=== PATIENT | male | born 1950 | race Caucasian/White ===

== ENCOUNTER 2017-04-16 11:46 | Emergency (ER) | payer MEDICARE ==
[2017-04-16 12:16] VITALS: BP 132/71
--- NOTE | 2017-04-16 13:02 | RAD ---
INDICATION: Left third digit pain and immobility COMPARISON: None TECHNIQUE: AP, lateral, and oblique views were obtained. FINDINGS: The bony structures, joint spaces, and soft tissues are normal for age. IMPRESSION: NEGATIVE EXAMINATION.
--- NOTE | 2017-04-16 13:54 | UC ---
Hand/Wrist HPI - HPI Summary HPI Summary: WAS USING FINGER SHOEHORN THIS MORNING, FELT A POP, UNABLE TO FLEX LEFT MIDDLE FINGER. HAD COURSE OF LEVOQUIN SEVERAL WEEKS AGO. FEELS PAIN IN PALM OF HAND WHEN ATTEMPTING TO FLEX FINGER. - History Of Current Complaint Chief Complaint: UCUpperExtremity Stated Complaint: FINGER INJURY Time Seen by Provider: 04/16/17 12:25 Hx Obtained From: Patient, Family/General Operator Onset/Duration: Sudden Onset, Lasting Hours, Still Present Severity Initially: Moderate Severity Currently: Mild Pain Intensity: 0 Pain Scale Used: 0-10 Numeric Character Of Pain: Dull, Aching Aggravating Factor(s): Flexion - UNABLE TO FLEX LEFT THIRD FINGER Alleviating: Nothing Associated Signs And Symptoms: Negative: Swelling, Redness, Fever, Numbness/ Tingling Related History: Dominant Hand Right - Allergies/Home Medications Allergies/Adverse Reactions: Allergies Allergy/AdvReac Type Severity Reaction Status Date / Time No Known Allergies Allergy Verified 04/16/17 12:16 Home Medications: Home Medications Aspirin [Aspirin 81 MG TAB] 81 mg PO DAILY 04/16/17 [History Confirmed 04/16/17] Diphenoxylat/Atrop 2.5-0.025M* [Lomotil TAB*] 1 tab PO DAILY 04/16/17 [History Confirmed 04/16/17] PMH/Surg Hx/FS Hx/Imm Hx Previously Healthy: Yes Endocrine History Of: Reports: Thyroid Disease - hypo Denies: Diabetes Cardiovascular History Of: Reports: Hypertension Respiratory History Of: Reports: Pneumonia GI/ History Of: Denies: Ulcer, Gastrointestinal Bleed, Gall Bladder Disease, Renal Disease Neurological History Of: Reports: Migraine - wears special watch Other History Of: Negative For: Anticoagulant Therapy - Surgical History Surgical History: Yes Surgery Procedure, Year, and Place: COLON RESECTION/COLON CANCER 2010: [facility] - Family History Known Family History: Positive: Hypertension - Social History Lives: With Family Alcohol Use: None Substance Use Type: None Smoking Status (MU): Never Smoked Tobacco - Immunization History Most Recent Influenza Vaccination: do no recieve Most Recent Tetanus Shot: within last five years Most Recent Pneumonia Vaccination: do not recieve Review of Systems Constitutional: Negative Skin: Negative Eyes: Negative ENT: Negative Respiratory: Negative Cardiovascular: Negative Gastrointestinal: Negative Genitourinary: Negative Musculoskeletal: Arthralgia - UNABLE TO FLEX LEFT THIRD FINGER, Myalgia - LEFT THIRD FINGER Neurological: Negative Psychological: Negative All Other Systems Reviewed And Are Negative: Yes Physical Exam Triage Information Reviewed: Yes Appearance: Well-Appearing, No Pain Distress, Well-Nourished Vital Signs: Initial Vital Signs Temp 97.4 F 04/16/17 12:07 Pulse 66 04/16/17 12:07 Resp 16 04/16/17 12:07 BP 132/71 04/16/17 12:07 Pulse Ox 97 04/16/17 12:07 Vital Signs Reviewed: Yes Eye Exam: Normal Eyes: Positive: Conjunctiva Clear ENT Exam: Normal ENT: Positive: Normal ENT inspection, Hearing grossly normal, TMs normal Dental Exam: Normal Neck exam: Normal Neck: Positive: Supple, Nontender, No Lymphadenopathy Respiratory Exam: Normal Respiratory: Positive: Chest non-tender, Lungs clear, Normal breath sounds, No respiratory distress, No accessory muscle use Cardiovascular Exam: Normal Cardiovascular: Positive: RRR, No Murmur, Pulses Normal Abdominal Exam: Normal Abdomen Description: Positive: Nontender, No Organomegaly Musculoskeletal: Positive: Strength Limited @ - UNABLE TO FLEX LEFT THIRD FINGER , ROM Limited @ - UNABLE TO FLEX LEFT THIRD FINGER Neurological Exam: Normal Psychological Exam: Normal Psychological: Positive: Normal Response To Family Skin Exam: Normal Hand/Wrist Course/Dx - Differential Dx/Diagnosis Differential Diagnosis/HQI/PQRI: Dislocation, Fracture, Sprain, Strain, Tendonitis, Tenosynovitis Provider Diagnoses: POSSIBLE FLEXOR TENDON INJURY TO LEFT THIRD FINGER - Physician Notifications Instructed by Provider To: Have Pt Call For Appt. Discharge - Discharge Plan Condition: Stable Disposition: HOME Patient Education Materials: Finger Sprain (ED), Tendinitis (ED), Tendon Rupture (ED) Referrals: Octavio Callaway MD [Primary Care Provider] - Inez Simmons MD [Medical Doctor] -
== END 2017-04-16 13:36 | disposition home or self-care (01) ==
LOC: UCEAST 11:46
DX: S69.92XA Unspecified injury of left wrist, hand and finger(s), initial encounter (principal); X58.XXXA Exposure to other specified factors, initial encounter; Y93.89 Activity, other specified; Y92.9 Unspecified place or not applicable; E03.9 Hypothyroidism, unspecified; I10 Essential (primary) hypertension; G43.909 Migraine, unspecified, not intractable, without status migrainosus
CPT/HCPCS: 73140; 99212; G0463

== ENCOUNTER 2017-04-18 12:02 | Observation (INO) | payer MEDICARE ==
[2017-04-18 13:50] LABS: Hematocrit 42 % (42-52); Mean Corpuscular HGB Conc 33 g/dl (31-36); Mean Corpuscular Hemoglobin 29 pg (27-31); Mean Corpuscular Volume 88 fL (80-94); Red Blood Count 4.81 10^6/ul (4.0-5.4); Red Cell Distribution Width 14 % (10.5-15); White Blood Count 15.8 10^3/ul (3.5-10.8)
[2017-04-18 13:51] LABS: Add Diff/Slide Review? Slide Review Added; Comments Flag Yes
[2017-04-18 14:00] LABS: Albumin 3.8 g/dL (3.2-5.2); BUN/Creatinine Ratio 16.7 (8-20); C Reactive Protein 39.87 mg/L (< 5.00); Calcium 8.9 mg/dL (8.6-10.3); EGFR African American 66.5 (>60); EGFR Non-African American 51.7 (>60); Globulin 3.6 g/dL (2-4); Potassium 3.8 mmol/L (3.5-5.0); Total Protein 7.4 g/dL (6.4-8.9)
[2017-04-18 14:51] LABS: Immature Granulocytes 27 % (0-9); Metamyelocytes % 1 % (0-2); Neutrophil % 61 % (38-83); RBC Morphology Normal (Normal)
[2017-04-18] MEDS: NS 0.9% 1000 ML* 2,000 ML IV ONE (15:16)
[2017-04-18] MEDS ORDERED: NS 0.9% 1000 ML* 1,000 ML IV ONE (15:29)
[2017-04-18] MEDS ORDERED: metroNIDAZOLE TAB* 250 MG PO ONE (15:29)
[2017-04-18] MEDS ORDERED: Vancomycin CAP* 125 MG CAP PO ONE (15:33)
[2017-04-18] MEDS: NS 0.9% 1000 ML* 1,000 ML IV SCH (19:30)
[2017-04-18] MEDS: Vancomycin CAP* 125 MG CAP PO SCH (21:23)
--- NOTE | 2017-04-18 21:57 | ED ---
Bárbara Cabezas Auryana, scribed for Yan Castorena MD on 04/18/17 at 1341 . GI/ HPI - HPI Summary HPI Summary: 66 year old male presents with watery diarrhea starting 1 week ago - 6-8x a day. He also has fevers (101.2 this morning), chills, and "racing pulse" per at doctors this morning. He denies abdominal pain, nausea, vomiting, blood in stool, or any foul smelling BM. No improvement with B.R.A.T. diet. Patient states that he has a normal appetite. He denies any recent travel. He is not on any blood thinners. Patient was recently on a 7 day course of ABX- Levaquin and Ciprofloxacin for infection - right toe. He was seen at Dr. Callaway office this morning and was advised to go to the ED - concern of C. Diff. PMHx is significant for colon CA with resection and ileostomy (2012 per patient), hypothyroidism, and bilateral LE neuropathy s/p chemotherapy - no history of DM. He denies any tobacco or alcohol use. - History of Current Complaint Chief Complaint: EDAbdPain Time Seen by Provider: 04/18/17 13:14 Stated Complaint: DIRRHEA/FEVER Hx Obtained From: Patient, Family/Doll Wig Maker Rooted Hair - Onset/Duration: Started Weeks Ago - 1, Still Present Timing: Constant Severity: Mild Current Severity: Mild Pain Intensity: 0 - no abdominal pain Associated Signs and Symptoms: Positive: Diarrhea - 6-8x day, Fever - this morning - none on arrival, Chills, Other: - "racing pulse" at appointment this morning. Negative: Nausea, Vomiting, Blood w/Stool, Abdominal Pain Alleviating Factor(s): Nothing - Allergy/Home Medications Allergies/Adverse Reactions: Allergies Allergy/AdvReac Type Severity Reaction Status Date / Time No Known Allergies Allergy Verified 04/16/17 12:16 Home Medications: Home Medications Aspirin EC Low Dose* [Ecotrin EC Low Dose 81 MG*] 81 mg PO DAILY 04/18/17 [ History Confirmed 04/18/17] Levothyroxine TAB* [Synthroid TAB*] 50 mcg PO DAILY 04/18/17 [History Confirmed 04/18/17] Losartan Potassium & Hydrochlo [Hyzaar 100/12.5 mg] 1 tab PO DAILY 04/18/17 [ History Confirmed 04/18/17] PMH/Surg Hx/FS Hx/Imm Hx Endocrine/Hematology History: Reports: Hx Blood Transfusions, Hx Thyroid Disease - hypo Denies: Hx Anticoagulant Therapy, Hx Blood Disorders, Hx Bone Marrow Disease , Hx Diabetes, Hx Systemic Lupus Erythematosus, Hx Sickle Cell Disease, Hx Anemia, Hx Unexplained Bleeding Cardiovascular History: Reports: Hx Hypertension Respiratory History: Reports: Hx Pneumonia Denies: Hx Sleep Apnea, Other Respiratory Problems/Disorders GI History: Reports: Hx Obstructive Bowel - due to cancer, Hx Ileostomy Denies: Hx Cirrhosis, Hx Crohn's Disease, Hx Diverticulosis, Hx Gall Bladder Disease, Hx Gastroesophageal Reflux Disease, Hx Gastrointestinal Bleed, Hx Hiatal Hernia, Hx Irritable Bowel, Hx Jaundice, Hx Pyloric Stenosis, Hx Ulcer, Other GI Disorders History: Denies: Hx Renal Disease Musculoskeletal History: Reports: Other Musculoskeletal History - pulled muscles in past Neurological History: Reports: Hx Migraine - wears special watch - Cancer History Cancer Type, Location and Year: Colon CA Hx Chemotherapy: Yes Hx Radiation Therapy: Yes Hx Palliative Cancer Treatment: No - Surgical History Surgery Procedure, Year, and Place: COLON RESECTION/COLON CANCER 2010: [facility] Hx Anesthesia Reactions: No Infectious Disease History: No Infectious Disease History: Denies: Hx Hepatitis, Hx Shingles, Hx Tuberculosis, Traveled Outside the [place] in Last 30 Days - Family History Known Family History: Positive: Hypertension, Other - low blood pressure, CA- unknown type - Social History Occupation: Retired Lives: With Family Alcohol Use: None Hx Substance Use: No Substance Use Type: Reports: None Smoking Status (MU): Never Smoked Tobacco Review of Systems Positive: Fever - per patient fever this morning 101.2 - none on arrival, Chills Eyes: Negative ENT: Negative Positive: Palpitations - "racing pulse" at appointment this morning Respiratory: Negative Positive: Vomiting. Negative: Abdominal Pain, Diarrhea, Nausea Genitourinary: Negative Musculoskeletal: Negative Skin: Negative Neurological: Negative Psychological: Normal All Other Systems Reviewed And Are Negative: Yes Physical Exam - Summary Physical Exam Summary: The patient is well-nourished in no acute distress and in no acute pain. The skin is warm and dry and skin color reflects adequate perfusion. Good skin turgor. HEENT: The head is normocephalic and atraumatic. The pupils are equal and reactive. The conjunctivae are clear and without drainage. Nares are patent and without drainage. Mouth reveals mildly dry mucous membranes and the throat is without erythema and exudate. The external ears are intact. Neck is supple with full range of motion and non-tender. There are no carotid bruits. There is no neck vein distension. Respiratory: Chest is non-tender. Lungs are clear to auscultation and breath sounds are symmetrical and equal. Cardiovascular: Heart is tachycardic. There is no murmur or rub auscultated. There is slight ankle edema and pulses are symmetrical and equal. Abdomen: The abdomen is soft and non-tender- obese. There are normal bowel sounds heard in all four quadrants and there is no organomegaly palpated. Musculoskeletal: There is no back pain noted. Extremities are non-tender with full range of motion. There is good capillary refill. There is no peripheral edema or calf tenderness elicited. Neurological: Patient is alert and oriented to person, place and time. The patient has symmetrical motor strength in all four extremities. Cranial nerves are grossly intact. Deep tendon reflexes are symmetrical and equal in all four extremities. Psychiatric: The patient has an appropriate affect and does not exhibit any anxiety or depression. Triage Information Reviewed: Yes Vital Signs On Initial Exam: Initial Vitals Temp Pulse Resp BP Pulse Ox 98.2 F 100 20 119/49 100 04/18/17 12:12 04/18/17 12:12 04/18/17 12:12 04/18/17 12:12 04/18/17 12:12 Vital Signs Reviewed: Yes - [place] Coma Scale Coma Scale Total: 15 Diagnostics - Vital Signs Vital Signs Temp Pulse Resp BP Pulse Ox 04/18/17 12:14 98.4 F 98 20 119/49 95 04/18/17 12:12 98.2 F 100 20 119/49 100 - Laboratory Lab Results: Lab Results 04/18/17 04/18/17 04/18/17 Range/Units 12:38 12:38 12:38 WBC 15.8 H (3.5-10.8) 10^3/ul RBC 4.81 (4.0-5.4) 10^6/ul Hgb 14.0 (14.0-18.0) g/dl Hct 42 (42-52) % MCV 88 (80-94) fL MCH 29 (27-31) pg MCHC 33 (31-36) g/dl RDW 14 (10.5-15) % Plt Count Not Reportable MPV Not Reportable Immature Gran % (Auto) 27 H (0-9) % Neut % (Auto) 88.4 H (38-83) % Lymph % (Auto) 4.7 L (25-47) % [place] % (Auto) 6.7 (1-9) % Eos % (Auto) 0 (0-6) % Baso % (Auto) 0.2 (0-2) % Absolute Neuts (auto) 14.0 H (1.5-7.7) 10^3/ul Absolute Lymphs (auto) 0.8 L (1.0-4.8) 10^3/ul Absolute Monos (auto) 1.1 H (0-0.8) 10^3/ul Absolute Eos (auto) 0 (0-0.6) 10^3/ul Absolute Basos (auto) 0 (0-0.2) 10^3/ul Absolute Nucleated RBC 0.01 10^3/ul Neutrophils % 61 (38-83) % Band Neutrophils % 26 H (0-8) % Lymphocytes % 4 L (25-47) % Monocytes % 8 (0-13) % Metamyelocytes % 1 (0-2) % Nucleated RBC % 0.1 Normal RBC Morphology Normal (Normal) Sodium 131 L (133-145) mmol/L Potassium 3.8 (3.5-5.0) mmol/L Chloride 100 L (101-111) mmol/L Carbon Dioxide 23 (22-32) mmol/L Anion Gap 8 (2-11) mmol/L BUN 23 (6-24) mg/dL Creatinine 1.38 H (0.67-1.17) mg/dL Est GFR ( Amer) 66.5 (>60) Est GFR (Non-Af Amer) 51.7 (>60) BUN/Creatinine Ratio 16.7 (8-20) Glucose 134 H (70-100) mg/dL Lactic Acid 1.1 (0.5-2.0) mmol/L Calcium 8.9 (8.6-10.3) mg/dL Total Bilirubin 1.00 (0.2-1.0) mg/dL AST 17 (13-39) U/L ALT 15 (7-52) U/L Alkaline Phosphatase 55 (34-104) U/L C-Reactive Protein 39.87 H (< 5.00) mg/L Total Protein 7.4 (6.4-8.9) g/dL Albumin 3.8 (3.2-5.2) g/dL Globulin 3.6 (2-4) g/dL Albumin/Globulin Ratio 1.1 (1-3) Lipase 25 (11.0-82.0) U/L Result Diagrams: 04/18/17 12:38 04/18/17 12:38 Lab Statement: Any lab studies that have been ordered have been reviewed, and results considered in the medical decision making process. Re-Evaluation - Re-Evaluation First Eval Re-Evaluation Time: 15:24 - dicussed labs, stool sample, and plan to consult hospitalist on admission or discharge Change: Unchanged Second Eval Re-Evaluation Time: 15:31 - discussed recommendation of hospitalist Comment: agrees to admission GIGU Course/Dx - Course Assessment/Plan: 66 year old male presents with watery diarrhea starting 7 days ago. Patient was recently on ABX for 1 week (ciprofloxacin and Levaquin) for recent right toe infection. He denies any nausea, vomiting, abominal pain, and any blood or foul smelling BMs. PMHx is significant for colon CA with resection and ileostomy (2012). He was seen at Dr. Callaway office this morning and was advised to go to the ED for concerns or C. Diff due to fever (101.2). LABS drawn:WBC (15.8), CRP (39.87), glucose (134). STOOL SAMPLE: C. DIFF - positive BLOOD-negative. Hospitalist consulted for admission- recommends vancomycin ABX and agrees to admission. Diagnosis: C. Difficile, bandemia, dehydration, and renal insufficiency - Diagnoses Differential Diagnoses - Male: Diverticulitis, Colitis, Dehydration, Sepsis, Other Provider Diagnoses: Bandemia, C. difficile diarrhea, Dehydration, Renal insufficiency - Physician Notifications Discussed Care Of Patient With: Dr. Blount Time Discussed With Above Provider: 15:27 - recommends admission Discharge - Discharge Plan Condition: Stable Disposition: ADMITTED TO [facility] documentation as recorded by the Bárbara mast Auryana accurately reflects the service I personally performed and the decisions made by me, Yan Castorena MD.
--- NOTE | 2017-04-18 22:22 | HP ---
CC: Dr. Callaway HISTORY AND PHYSICAL: DATE OF ADMISSION: 04/18/17 PRIMARY CARE PHYSICIAN: Dr. Callaway. CHIEF COMPLAINT: Diarrhea. HISTORY OF PRESENT ILLNESS: Mr. Sanchez is a 66-year-old male with past medical history of hyperten rayshawn; hypothyroidism; history of rectal cancer, status post low anterior resection, ileostomy, and r eversal with subsequent chronic diarrhea who presents to the hospital with significant increase in l oose stools. The patient states he was recently treated for a toe infection by Dr. Callaway's office. He was initially on clindamycin, developed diarrhea; then was switched to Flagyl and Levaquin for a n additional 10 days. His states the toe has been improving, although still red and Is not painful due to his peripheral neuropathy. The patient states he finished the antibiotics 1 week ago. He nichols d diarrhea that began 2 to 3 days into the course. After completing the antibiotics, the diarrhea p ersisted for 2 additional days and then resolved; however, it recurred again 3 days ago. He states he has been going 6 to 7 times daily. It has been watery at times. Denies abdominal pain. Reports some chills last night. Has had no nausea or vomiting. He reports relatively good p.o. intake, al though he admits he has not been drinking enough fluids. Denies any blood in the stool. No hematur ia, dysuria, chest pain, or shortness of breath. PAST MEDICAL HISTORY: 1. Hypertension. 2. Hypothyroidism. 3. Rectal cancer. 4. Chronic diarrhea. 5. Neuropathy. PAST SURGICAL HISTORY: Low anterior resection, ileostomy, and reversal in 2011. HOME MEDICATIONS: 1. Aspirin 81 mg by mouth daily. 2. Synthroid 50 mcg by mouth daily. 3. Lomotil 1 tablet by mouth daily. ALLERGIES: The patient reports no known drug allergies. FAMILY HISTORY: Significant for maternal uncle with throat cancer and maternal grandmother with bong betmalgorzata. SOCIAL HISTORY: Denies any history of tobacco abuse. Occasional alcohol use. Denies any illicit dr ug use. REVIEW OF SYSTEMS: A 12-point review of systems negative except for that as noted in the HPI. PHYSICAL EXAMINATION GENERAL: The patient is a pleasant middle-aged male lying in bed in no apparent distress. VITAL SIGNS: On admission, temperature 98.2, heart rate of 100, respiratory rate of 20, O2 saturati on 100% on room air, blood pressure 119/49. HEENT: Dry mucous membranes. Anicteric sclerae. No cervical adenopathy. LUNGS: Clear to auscultation bilaterally. No wheezes, rales, or rhonchi. CARDIOVASCULAR: Regular rate and rhythm. S1, S2. No murmurs, gallops, or rubs. ABDOMEN: Soft, nontender, nondistended. Bowel sounds positive. EXTREMITIES: No cyanosis, clubbing, or edema. Right great toe with erythema, some peeling skin. N o purulence noted. Erosion of the toenail. SKIN: Warm, dry, and well perfused. LABS AND DIAGNOSTICS: White blood cell count of 15.8, hematocrit of 42, platelets not reportable, 26% bandemia. Sodium of 131, potassium 3.8, chloride of 100, BUN of 23, creatinine 1.38, glucose of 134, lactic acid of 1.1. CRP of 39. Stool fecal lactoferrin positive. C. difficile positive. Oc cult blood negative. ASSESSMENT AND PLAN: Clostridium difficile infection in a 66-year-old male with a past medical hist ory of hypertension, hypothyroidism, and rectal cancer. 1. Clostridium difficile colitis: Could qualify as severe with the patient's leukocytosis and kristi l failure. He has a significant bandemia which is why I will just keep him in the hospital overnigh t. I am going to treat him with oral vancomycin. He received IV fluid boluses in the emergency dep artment. We will continue maintenance fluids at 100 cc per hour. Monitor the patient's stool outpu t. 2. Acute kidney injury: The patient's creatinine is 1.38. Baseline is around 0.7 to 0.9. Receive d IV fluids in the emergency department. For now, we will hold the patient's home losartan/hydrochl orothiazide. Recheck BMP in the morning. 3. Hypertension: Holding antihypertensives as above. 4. Hypothyroidism: Continue home Synthroid. 5. DVT prophylaxis: SCDs. 6. Code status: The patient is full code. TIME SPENT: Total time spent on this admission, 40 minutes with over half the time spent face-to-fa ce with the patient in counseling and coordinating care. [id number]/[facility] #: [id number]
[2017-04-19] MEDS: NS 0.9% 1000 ML* 1,000 ML IV SCH (05:38)
[2017-04-19] MEDS ORDERED: Levothyroxine TAB* 50 MCG TAB PO SCH (06:00)
[2017-04-19 07:24] LABS: Hematocrit 36 % (42-52); Mean Corpuscular HGB Conc 33 g/dl (31-36); Mean Corpuscular Hemoglobin 30 pg (27-31); Mean Corpuscular Volume 90 fL (80-94); Mean Platelet Volume 9 um3 (7.4-10.4); Red Blood Count 4.04 10^6/ul (4.0-5.4); Red Cell Distribution Width 14 % (10.5-15); White Blood Count 10.9 10^3/ul (3.5-10.8)
[2017-04-19 07:38] LABS: BUN/Creatinine Ratio 18.6 (8-20); EGFR African American 83.8 (>60); EGFR Non-African American 65.1 (>60); Potassium 3.6 mmol/L (3.5-5.0)
[2017-04-19] MEDS ORDERED: Aspirin EC Low Dose* 81 MG TAB.EC PO SCH (09:00)
[2017-04-19] MEDS: Vancomycin CAP* 125 MG CAP PO SCH (09:11)
[2017-04-19 09:13] VITALS: BP 121/51
[2017-04-19 09:21] LABS: Urine Bacteria Absent (Absent); Urine Bilirubin Negative (Negative); Urine Glucose Negative (Negative); Urine Nitrite Negative (Negative)
--- NOTE | 2017-04-19 10:07 | DCNOTE ---
Patient seen this morning. Had watery BM yesterday evening, soft, solid stool at night and nothing since. No abdominal pain. On exam, RRR, s1 and s2 present, no m/g/r, abd soft, NTND, BS+, R toe with improvement in erythema Leukocytosis, bandemia and BENNY all improved. Will discharge home on oral Vancomycin to complete outpatient course.
--- NOTE | 2017-04-20 01:48 | DS ---
CC: Dr. Callaway DISCHARGE SUMMARY: DATE OF ADMISSION: 04/18/17 DATE OF DISCHARGE: 04/19/17 PRIMARY CARE PHYSICIAN: Dr. Callaway. PRINCIPAL DISCHARGE DIAGNOSES: 1. Clostridium difficile colitis. 2. Acute kidney injury. 3. Bandemia. SECONDARY DIAGNOSES: 1. Hypertension. 2. Hypothyroidism. 3. History of rectal cancer. 4. Chronic diarrhea. 5. Neuropathy. DISCHARGE MEDICATION REGIMEN: 1. Vancomycin 125 mg by mouth 4 times daily. 2. Lomotil 1 tablet by mouth daily. 3. Synthroid 50 mcg by mouth daily. 4. Losartan/HCTZ 100/12.5 one tablet by mouth daily. 5. Aspirin 81 mg by mouth daily. HISTORY OF PRESENT ILLNESS AND HOSPITAL SUMMARY: Please see my full history and physical for full d etails. Briefly, Mr. Sanchez is a 66-year-old man with a past medical history as above who presente d to the hospital with increasing bouts of diarrhea after a recent antibiotic course for a toe infec tion. The patient was initially started on clindamycin and then switched to Flagyl and Levaquin. Di arrhea persisted after discontinuing the antibiotics. He came to the hospital with an elevated whit e blood cell count of 15, as well as a 26% bandemia and BENNY. Due to these constellation of findings, I treated the patient for severe C. diff with vancomycin oral. He had a rapid response with normal ization of his leukocytosis the following day and resolution of his BENNY. He will be discharged home to complete a 2-week course of oral vancomycin and follow up with his PCP as an outpatient. TIME SP ENT: Total time spent on this discharge, 40 minutes. This is just a summary of the hospitalization. Please see the full medical record for further detai ls. [id number]/[facility] #: [id number]
== END 2017-04-19 11:25 | disposition home or self-care (01) ==
LOC: ED 12:02 → MED 16:13
PROVIDERS: ADMIT Hospitalist; ATTEND Hospitalist
DX: A04.7 Enterocolitis due to Clostridium difficile (principal); N17.9 Acute kidney failure, unspecified; D72.825 Bandemia; I10 Essential (primary) hypertension; E03.9 Hypothyroidism, unspecified; R19.7 Diarrhea, unspecified; G62.9 Polyneuropathy, unspecified; Z85.048 Personal history of other malignant neoplasm of rectum, rectosigmoid junction, and anus
CPT/HCPCS: 36415; 80048; 80053; 81003; 81015; 82272; 83605; 83630; 83690; 85025; 86140; 87040; 87045; 87046; 87493; 87899; 96360; 99284; A9270-GY; G0378

== ENCOUNTER 2017-04-24 14:17 | Day surgery (SDC) | payer MEDICARE ==
[~2017-04-24 14:17] MED LIST: Dexamethasone IV* 4 MG/ML 1 ML (4 MG) IV SLOW PU ONE; Famotidine IV* 10 MG/ML 2 ML (20 mg) IV ONE
[2017-04-24] MEDS ORDERED: Dexamethasone IV* 4 MG/ML 1 ML (4 MG) ONE (14:31)
[2017-04-24] MEDS ORDERED: Famotidine IV* 10 MG/ML 2 ML (20 mg) ONE (14:31)
[2017-04-24] MEDS ORDERED: ceFAZolin 2 GM PREMIX(*) 2 GM/50 ML BAG IVPB ONE (14:32)
[2017-04-24] MEDS ORDERED: Buffered Lidocaine 1% SYRIN* 5 ML/SYR SYRINGE ONE (14:32)
[2017-04-24] MEDS ORDERED: Bupivacaine 0.25% SDV* 30 ML ONE (14:33)
[2017-04-24] MEDS ORDERED: Lidocaine 1% INJ* 10 MG/ML 30 ML SDV ONE (14:34)
[2017-04-24] MEDS ORDERED: fentaNYL* 50 MCG/ML 2 ML VIAL (100 MCG VIAL) ONE (16:10)
[2017-04-24] MEDS ORDERED: Midazolam* 1 MG/ML 2 ML VIAL (2 MG) ONE (16:10)
[2017-04-24] MEDS ORDERED: Ketorolac INJ* 30 MG/ML 1 ML VIAL ONE (16:11)
[2017-04-24] MEDS ORDERED: Propofol* 10 MG/ML 20 ML BTL IV PUSH ONE (16:11)
[2017-04-24] MEDS ORDERED: Ondansetron INJ* 2 MG/ML VIAL ONE (16:11)
[2017-04-24] MEDS ORDERED: DiMENhydriNATE IV* 50 MG/ML VIAL IV PUSH PRN (16:15)
[2017-04-24] MEDS ORDERED: fentaNYL* 50 MCG/ML 2 ML VIAL (100 MCG VIAL) IV PRN (16:15)
[2017-04-24] MEDS ORDERED: ceFAZolin VIAL(*) 1 GM VIAL ONE (16:19)
[2017-04-24 20:23] VITALS: BP 125/67
--- NOTE | 2017-04-26 18:48 | OP ---
OPERATIVE REPORT: DATE OF OPERATION: 04/24/17 - CHRISTI DATE OF : 52 SURGEON: Charly Dietrich MD [employer] CONSULTANT: KELBY Canada ANESTHESIOLOGIST: Dr. Crow. ANESTHESIA: General. PRE-OP DIAGNOSIS: Left middle finger ruptures of FDP and FDS tendons after a course of Levaquin. POST-OP DIAGNOSIS: Left middle finger ruptures of FDP and FDS tendons after a course of Levaquin. OPERATIVE PROCEDURE: 1. Excision of extensive flexor tendon tenosynovitis at the level of the wrist and palm. 2. Repair of FDP laceration with autogenous palmaris longus tendon graft. 3. Debridement of flexor digitorum superficialis tendon rupture. INDICATIONS: Jose is a 66-year-old gentleman who had a great toe infection that was treated with Levaquin and Flagyl. On the 10th day of a 10-day course of Levaquin, he felt a pop and lost the ability to flex his middle finger at either the DIP or FDP joints. He was tender along the entirety of the flexor tendon sheath including down into the finger and into the palm. Unfortunately, that first day when he was in my office, he was febrile and diaphoretic and he went over to the ER where he was diagnosed with C diff colitis. He underwent a course of oral vancomycin and was admitted for rehydration for one night. I saw him back 3 or 4 days after that in the office. He had not had a fever since that day when he was in my office. His diarrhea had stopped. He was feeling much much better. I sent him over to his primary care physician, Dr. Callaway, who evaluated him. Dr. Callaway and I had a discussion and given the patient's clinical picture was improving and we ultimately decided that he was medically optimized now to proceed with exploration of the left middle finger flexor tendon and repair as needed. I talked to Jose about the risks of the surgery. He is at high risk given his recent C. diff infection of having a postoperative complication. He elected to proceed. ESTIMATED BLOOD LOSS: 5 mL. COMPLICATIONS: None. FINDINGS: Extensive flexor tendon tenosynovitis from the level of the distal forearm down to the carpal tunnel and into the palm. He had a rupture of both the FDS and FDP tendons at the level of the palm just distal to the superficial palmar arch. The FDP had ruptured just distal and at the origination of the lumbrical muscle and was being held from retracting too far by the lumbrical muscle. The ruptured tendon stumps were quite diseased and degenerative. There was also some fraying and early degeneration of the FDP tendons to the ring and index fingers. DESCRIPTION OF PROCEDURE: Jose was seen in the preoperative holding area. The correct side, site and procedure were identified. He came back to the operating room where anesthesia was induced. The arm was prepped and draped in the usual fashion, formal time-out was performed. I began by making a midaxial incision along the ulnar border of the left middle finger, which was extended back in Jessica type fashion onto the distal palm. The ulnar digital nerve was identified and full thickness flap was raised off of the flexor tendon sheath, taken care to not violate the flexor tendon sheath. The flexor tendons were identified and looked to be intact in the finger. I therefore laid this flap back down and put a couple of 5-[address] to cover the wound there. I then extended my incision proximally in Jessica type fashion in the palm down to the level where I would end a carpal tunnel incision. Dissection was carried back and ultimately I began to encounter more hemorrhagic tissue and signs of injury. I pulled on the FDS tendon distally and the stump of the FDS was delivered into the more distal wound. I was not able to deliver the FDP tendon at this point. It looked like the location of the rupture was bit more proximal and so I extended my incision in the course of the typical carpal tunnel incision to the level of the wrist flexion crease and then brought it back proximally in Jessica type fashion, staying ulnar to the palmaris tendon, couple of centimeters onto the distal forearm. The dissection was carried down through the subcutaneous tissue and the palmar fascia was incised longitudinally. The hook of the hamate was palpated and the transverse carpal ligament was released just off the radial aspect of the hook of the hamate until the flexor tendons were encountered. There was abundant inflamed flexor tenosynovitis present obscuring my view of the flexor tendons. The median nerve was identified radially and protected. I continued my dissection of the rest of the transverse carpal ligament and the distal antebrachial fascia until I began to encounter the FDS and FDP tendons and were normal, healthy- appearing tenosynovium. I began to raise the tenosynovium off the flexor tendons from proximally where the tissue was more normal appearing, out distally through the carpal tunnel where the tenosynovium was quite diseased and abnormal. Once I had released all the tenosynovitis off of the tendons, I began to encounter the rupture of the FDP just deep and at the distal edge of the superficial palmar arch. I raised the tenosynovitis and scar tissue off of the ruptured distal ends back proximally to the level of the ruptures well. Once I had completed a full extensive flexor tenosynovectomy, the two ends of the ruptured FDS were easily visualizable and the ruptured FDP edges were clearly visualizable. I passed off all of the flexor tenosynovium as a specimen. The proximal FDS tendon stump was retracted clear back several centimeters proximal to the wrist flexion crease and was located in the distal forearm. There was an extensive gap between the two edges of the FDS tendon. Quite fortunate for him the FDP tendon proximal stump had been tethered by the origination of the lumbrical muscle and had not been allowed to retract. After I debrided the tendon edges back to healthy tendon, there was a gap of 4-5 cm. At this point, it was clear that the tendon edges would not come together to be primarily repaired as anticipated. I then turned my attention to the distal forearm wound where I dissected out the distal aspect of the palmaris longus tendon. It was a small palmaris longus tendon but acceptable and so I went ahead and freed this up of all tendon adhesions distally. I then placed the tendon stripper around the distal aspect of the tendon and used this to release the tendon proximally at the musculotendinous junction. This was then passed off and kept in a moist Ray- Clement while I just finished up the final cleaning and preparation of the FDP tendon edges. Once I had everything cleaned and ready for the graft, I brought in my palmaris longus tendon graft and I used the tendon andrew to perform a Pulvertaft weave of the tendon proximally. This was tacked in place with the few 3-0 Ethibond sutures. I then took my tendon andrew and weaved the palmaris longus tendon into the distal tendon stump. This again was tacked in place with a couple of 3-0 Ethibond sutures. I then checked my tension and the tendon graft was a little loose as the finger was sitting up a little bit more extended in respect to the rest of the normal cascade. I went ahead and completed the suturing of the tendon distally to secure the weave. I then released the proximal sutures that I replaced. I tightened up the graft and pulled a little bit more graft through the weave and then sutured in place with one 3-0 Ethibond suture. I rechecked the tensioning by taking the wrist through flexion and extension multiple times and checking the cascade. The middle finger was sitting just a little bit more flexed than the remainder of the digits on the normal cascade. I was very pleased with this, so I went ahead and sutured my proximal weave in place with multiple other figure-of- eight 3-0 Ethibond sutures. Once I had both my proximal and distal Pulvertaft weaves secured and the tension set optimally, I decided that the gap between the two ends of the FDS would take a very long tendon graft and I was not sure even if I would be able to get it with the very long tendon graft. I ultimately decided just to debride the distal stump of the FDS back to a clean healthy tendon. I then irrigated out the wound. I checked one more time and both proper and common digital nerves had been identified and protected throughout the course of the surgery were intact. I cauterized any potential bleeders. I irrigated the wound out copiously again and then I let my skin flaps go back in the proximal aspect of the incision including distal forearm wound and carpal tunnel , area of the wound was closed with 4-0 nylon horizontal mattress sutures. The portion of the wound in the finger was closed with 5-0 simple interrupted nylon sutures. Once the wound was well closed up, the operative area was infiltrated with 0.25% Marcaine. The wound was dressed with Xeroform, 4x4s, sterile Webril and then dorsal blocking splint with the wrist in neutral flexion and the MP joints in maximal flexion was applied. The tourniquet was deflated. The arm had been exsanguinated and the tourniquet inflated to 250 mmHg prior to making skin incision. The finger tip pinked up immediately. He was then awoken back up and taken to recovery room in stable condition. [id number]/[facility] #: [id number] [facility]
== END 2017-04-24 20:39 | disposition home or self-care (01) ==
LOC: OREAST 14:17
PROVIDERS: ATTEND Orthopaedic Surgery Hand Surgery
DX: M66.342 Spontaneous rupture of flexor tendons, left hand (principal); M65.842 Other synovitis and tenosynovitis, left hand; I10 Essential (primary) hypertension; E03.9 Hypothyroidism, unspecified; Z68.37 Body mass index [BMI] 37.0-37.9, adult; Z85.038 Personal history of other malignant neoplasm of large intestine; G62.9 Polyneuropathy, unspecified
CPT/HCPCS: 88304; J0690; J1100; J1885; J2001; J2250; J2405; J2704; J3010